=== PATIENT | male | born 1970 | race Caucasian/White ===

== ENCOUNTER 2019-11-06 13:26 | Emergency (ER) | payer SELFPAY ==
[~2019-11-06] VITALS: Ht 165.1 cm; Wt 69.4 kg
[2019-11-06 13:35] VITALS: BP 143/86
--- NOTE | 2019-11-06 13:35 | NUR ---
TO BED # 07 AMBULATORY
--- NOTE | 2019-11-06 14:03 | NUR ---
DR LARKIN AT BEDSIDE
--- NOTE | 2019-11-06 14:06 | NUR ---
49 Y/M PRESENTS TO ED FOR "TYLENOL OVERDOSE" REPORTS TAKING TYLENOL 500MG Q 3 HOURS FOR FEVERS X 1 WEEK (103F). PT REPORTS LOW ABDOMINAL PAIN, L FLANK PAIN (8/10) X 2 DAY, DYSURIA, DARK COLORED URINE, NAUSEA, CHILLS. HX- HTN, COPD RX- LISINOPRIL, PROSCAR, ALBUTEROL, ADVAIR NKDA
[2019-11-06] MEDS ORDERED: KETOROLAC 30 MG/ML VIAL IVP ONE (14:10)
[2019-11-06] MEDS ORDERED: ONDANSETRON 4 MG/2 ML VIAL IVP ONE (14:10)
--- NOTE | 2019-11-06 14:30 | NUR ---
LAB AT BEDSIDE.
[2019-11-06 14:34] LABS: BASOPHILS % (AUTO) 0.2 % (0.0-2.0); EOSINOPHILS # (AUTO) 0.1 K/uL (0-0.4); EOSINOPHILS % (AUTO) 0.8 % (0.0-4.0); HEMATOCRIT 34.3 % (36-52); HEMOGLOBIN 11.1 g/dL (12.0-18.0); LYMPHOCYTES # (AUTO) 0.7 K/uL (2.0-11.5); LYMPHOCYTES % (AUTO) 4.8 % (20.5-51.1); MEAN CORPUSCULAR HEMOGLOBIN 26 pg (27-31); MEAN CORPUSCULAR HGB CONC 32 g/dL (33-37); MEAN CORPUSCULAR VOLUME 81.2 fL (80-94); MONOCYTES # (AUTO) 0.2 K/uL (0.8-1.0); MONOCYTES % (AUTO) 1.6 % (1.7-9.3); NEUTROPHILS # (AUTO) 12.6 K/uL (1.8-7.7); NEUTROPHILS % (AUTO) 92.6 % (42.2-75.2); PLATELET COUNT (AUTO) 158 K/uL (140-450); RED BLOOD CELL COUNT(AUTO) 4.22 MIL/uL (4.20-6.10); RED CELL DISTRIBUTION WIDTH 16.7 % (11.6-13.7); WHITE BLOOD COUNT (AUTO) 13.6 K/uL (4.8-10.8)
--- NOTE | 2019-11-06 14:47 | NUR ---
PT REFUSING TO CHANGE INTO GOWN. INSTRUCTED PT THAT IN ORDER FOR XRAYS THEY MAY REQUIRE PT TO REMOVE HOODIE
[2019-11-06] MEDS: NACL 0.9% 1,000 ML IV SCH ×2 (14:51→15:59)
[2019-11-06 14:53] LABS: ANION GAP 15.8 (8-16); CARBON DIOXIDE 22.9 mmol/L (21-32); CHLORIDE 100 mmol/L (98-107); CREATININE 3.2 mg/dL (0.7-1.3); GFR ARICAN-AMERICAN 26 mL/min (>90); GLUCOSE 117 mg/dL (74-106); POTASSIUM 4.7 mmol/L (3.5-5.1); SODIUM SERUM 134 mmol/L (136-145); UREA NITROGEN, BLOOD 37 mg/dL (7-18)
[2019-11-06 14:55] LABS: ALBUMIN 1.9 g/dL (3.4-5.0); ASPARTATE AMINOTRANSFERASE 31 U/L (15-37); LIPASE 68 U/L (73-393)
--- NOTE | 2019-11-06 14:57 | NUR ---
XR AT BEDSIDE
[2019-11-06 15:14] LABS: ACETAMINOPHEN < 0.5 ug/ml (10-30)
[2019-11-06] MEDS ORDERED: NACL 0.9% 1,000 ML IV ONE (16:10)
[2019-11-06 16:15] LABS: APPEARANCE,URINE CLEAR (CLEAR); BILIRUBIN,URINE 1+ (NEGATIVE); BLOOD, URINE 1+ (NEGATIVE); COLOR,URINE YELLOW (YELLOW); LEUKOCYTE ESTERASE ,URINE NEGATIVE (NEGATIVE); NITRITE, URINE NEGATIVE (NEGATIVE); UGLUCOSE NEGATIVE (NEGATIVE)
--- NOTE | 2019-11-06 16:22 | NUR ---
PT REQUESTING FOOD, NAUSEA SUBSIDED. PER MD LARKIN PT OK TO EAT. PT PROVIDED JUICE, JELLO, AND CRACKERS.
[2019-11-06 16:45] LABS: RBC,URINE 0-5 /HPF (0-5); WBC,URINE NONE SEEN /HPF (0-5)
--- NOTE | 2019-11-06 16:59 | NUR ---
Patient discharged with v/s stable. Written and verbal after care instructions given and explained. Patient alert, oriented and verbalized understanding of instructions. Ambulatory with steady gait. All questions addressed prior to discharge. ID band removed. Patient advised to follow up with PMD. Rx of ZOFRAN, NORCO, AND MOTRIN given. Patient educated on indication of medication including possible reaction and side effects. Opportunity to ask questions provided and answered. PT INSTRUCTED NOT TO TAKE NORCO WHILE DRIVING OR ORERATING ANY HEAVY EQUIPMENT.
[2019-11-06 17:04] VITALS: BP 108/64
== END 2019-11-06 16:59 | disposition home or self-care (01) ==
LOC: MED 13:26
DX: I12.9 Hypertensive chronic kidney disease with stage 1 through stage 4 chronic kidney disease, or unspecified chronic kidney disease (principal); N17.8 Other acute kidney failure; J45.909 Unspecified asthma, uncomplicated; F17.210 Nicotine dependence, cigarettes, uncomplicated
CPT/HCPCS: 36415; 71045; 80053; 81001; 82550; 83690; 85025; 87804; 96361; 96374; 96375; 99284; G0480; J1885; J2405; J7030; Q0092